=== PATIENT | male | born 1965 | race Caucasian/White ===

== ENCOUNTER 2018-07-03 00:56 | Emergency (ER) | payer MEDICAID ==
[~2018-07-03] VITALS: Ht 185.4 cm; Wt 108.9 kg
[2018-07-03 01:03] VITALS: BP_SYST 151
--- NOTE | 2018-07-03 01:03 | NUR ---
Pt placed in bed 6 for evaluation.
--- NOTE | 2018-07-03 01:04 | NUR ---
Pt C/O rash and itching on face, neck and R arm x 3 days. Pt denies any pain, any allergies to medication , chest pain or shortness of breath at this time. Pt's blood pressure is elevated on assessment 159/111, state PMD did prescribe him medication but is noncompliant. Will continue to monitor.
--- NOTE | 2018-07-03 01:09 | NUR ---
ER Dr. Alex at bedside examining patient.
--- NOTE | 2018-07-03 01:30 | NUR ---
Patient given written and verbal discharge instructions and verbalizes understanding. ER MD discussed with patient the results and treatment provided. Patient in stable condition. ID arm band removed. Rx of Bethamethasone Dipropionate adn Norvasc given. Patient educated on pain management and to follow up with PMD. Pain Scale 0/10. Opportunity for questions provided and answered. Medication side effect fact sheet provided.
== END 2018-07-03 01:32 | disposition home or self-care (01) ==
LOC: SED 00:56
DX: L23.9 Allergic contact dermatitis, unspecified cause (principal); I10 Essential (primary) hypertension; Z87.891 Personal history of nicotine dependence
CPT/HCPCS: 99283